=== PATIENT | male | born 1995 | race African-American/Black ===

== ENCOUNTER 2021-12-31 15:44 | Emergency (ER) | payer MEDICAID ==
[~2021-12-31] VITALS: Ht 185.4 cm; Wt 107.0 kg
[2021-12-31 15:50] VITALS: BP 128/75
[2021-12-31] MEDS ORDERED: bacitracin 15gm ointment TP ONE (16:10)
[2021-12-31] MEDS ORDERED: TETanus/Pertussis (Acell)/Diphther VAC/PF (Tdap-Adult) 0.5ml syringe IMVAC ONE (16:10)
--- NOTE | 2021-12-31 16:50 | NUR ---
Pt and [facility]'s Deputies given and undertands d/c instructions. Ambulatory with a steady gait.
== END 2021-12-31 16:59 | disposition home or self-care (01) ==
LOC: ER 15:45
DX: S46.222A Laceration of muscle, fascia and tendon of other parts of biceps, left arm, initial encounter (principal); Z20.3 Contact with and (suspected) exposure to rabies; X58.XXXA Exposure to other specified factors, initial encounter; Y93.89 Activity, other specified; Y92.89 Other specified places as the place of occurrence of the external cause; Y99.8 Other external cause status
CPT/HCPCS: 12002; 90471; 90715; 99283; J7030; A6258; A6449